=== PATIENT | female | born 1985 | race American Indian/Alaskan Native ===

== ENCOUNTER 2017-05-06 17:12 | Emergency (ER) | payer MEDICAID ==
[2017-05-06 17:19] VITALS: BP 182/107
--- NOTE | 2017-05-06 19:41 | Emergency Department Report ---
HPI - General Chief Complaint: High BP Time Seen by Provider: 05/06/17 19:21 - HPI HPI: 31-year-old -[place] female comes in as a referral from her [facility] doctor for elevated blood pressure. Patient reports that she has a history of elevated blood pressures with her children and her last she had elevated blood pressure and has not been able to get it under control. Patient reports that she is on methadopa that was because she was . Patient reports intermittent headaches and intermittent chest discomfort. She reports no other issues. ED Past Medical Hx - Past Medical History Previous Medical History?: Yes Hx Hypertension: Yes - Surgical History Past Surgical History?: No - Social History Smoking Status: Never Smoker Substance Use Type: None - Medications Home Medications: Home Medications Medication Instructions Recorded Confirmed Last Taken Type Lisinopril [Zestril] 20 mg PO QDAY #30 tablet 05/06/17 Unknown Rx amLODIPine [Norvasc] 10 mg PO DAILY #30 tab 05/06/17 Unknown Rx ED Review of Systems ROS: Stated complaint: HIGH BP Other details as noted in HPI Constitutional: denies: chills, fever Eyes: denies: eye pain, eye discharge, vision change ENT: denies: ear pain, throat pain Respiratory: denies: cough, shortness of breath, wheezing Cardiovascular: denies: chest pain, palpitations Endocrine: no symptoms reported Gastrointestinal: denies: abdominal pain, nausea, diarrhea Genitourinary: denies: urgency, dysuria, discharge Musculoskeletal: denies: back pain, joint swelling, arthralgia Skin: denies: rash, lesions Neurological: denies: headache, weakness, paresthesias Psychiatric: denies: anxiety, depression Hematological/Lymphatic: denies: easy bleeding, easy bruising Physical Exam - Physical Exam Vital Signs: Vital Signs 05/06/17 17:16 Temperature 98 F Pulse Rate 81 Respiratory 16 Rate Blood Pressure 182/107 O2 Sat by Pulse 100 Oximetry Physical Exam: GENERAL: Alert and oriented x3, no apparent distress, Normal Gait, atraumatic. HEAD: Head is normocephalic and a-traumatic. EYES: Extra ocular muscles are intact. Pupils are equal, round, and reactive to light and accommodation. MOUTH:Mouth is well hydrated and without lesions. Tonsils nonerythematous or swollen, Uvula midline, Tongue not elevated. Mucous membranes are moist. Posterior pharynx clear, no exudate or lesions. Patent airways. NECK: Supple. Non edematous, No carotid bruits. No lymphadenopathy or thyromegaly. LUNGS: Symetrical with respiration, No wheezing, no rales or crackles, CTAB. HEART: S1, S2 present, regular rate and rhythm without murmur, no rubs, no gallops. ABDOMEN: No organomegaly was noted,Positive bowel sounds, soft, and non- distended. . Nontender to palpation on all Quadrants, NO CVA tenderness. EXTREMITIES/MUSCULOSKELETAL: No cyanosis, clubbing, rash, lesions or edema. Full ROM bilaterally. UE/LE Pulses 2+ bilaterally. LE and UE 5+ strength bilaterally NEUROLOGIC: No focal Deficit, Cranial nerves II through XII are grossly intact. No loss of sensation, No facial droop, Negative rhomberg. PSYCHIATRIC: Mood is congruent with affect, denies suicidal or homicidal ideations. SKIN: Warm and dry, No lesions, No ulceration or induration present ED Course Vital Signs 05/06/17 17:16 Temperature 98 F Pulse Rate 81 Respiratory 16 Rate Blood Pressure 182/107 O2 Sat by Pulse 100 Oximetry ED Medical Decision Making - Medical Decision Making Patient has been evaluated by this provider fast track. I discussed with patient that we will discontinue her methyldopa was started on amlodipine 10 mg daily as well as lisinopril 20 mg daily and to have her follow up with her primary care provider. Patient did ask questions regarding of weight management discussed the patient healthy choices of eating. Proper snacking, larger meals during the day. Patient verbalized understanding. Critical care attestation.: If time is entered above; I have spent that time in minutes in the direct care of this critically ill patient, excluding procedure time. ED Disposition Clinical Impression: Hypertension Qualifiers: Hypertension type: essential hypertension Qualified Code(s): I10 - Essential ( primary) hypertension Disposition: - TO HOME OR SELFCARE Is pt being admited?: No Does the pt Need Aspirin: No Condition: Stable Instructions: Hypertension (ED) Additional Instructions: Please take medication as prescribed. Please discontinue the methadopa. Please follow-up with your primary care provider the next week. Prescriptions: amLODIPine [Norvasc] 10 mg PO DAILY #30 tab Lisinopril [Zestril] 20 mg PO QDAY #30 tablet Forms: Work/School Release Form(ED)
== END 2017-05-06 20:12 | disposition home or self-care (01) ==
LOC: ED 17:12
DX: I10 Essential (primary) hypertension (principal)
CPT/HCPCS: 99282